=== PATIENT | female | born 1980 | race Caucasian/White ===

== ENCOUNTER → 2017-09-14 15:13 | Outpatient (CLI) | payer OTHER, SELFPAY ==
[2017-09-17 06:49] LABS: Progesterone 4.6 ng/mL (.)
== END ==
PROVIDERS: Visit Provider Obstetrics & Gynecology
DX: Z31.41 Encounter for fertility testing (principal)
CPT/HCPCS: 36415; 82397; 84144

== ENCOUNTER → 2017-10-16 05:06 | Outpatient (CLI) | payer OTHER, SELFPAY ==
--- NOTE | 2017-10-16 | XR_ITS ---
XR foot RT min 3V HISTORY: Right lateral foot pain ORDERING PHYSICIAN: Willie Nicholas MD PATIENT AGE: 36 years COMPARISON: None FINDINGS: No fracture or dislocation. No lytic or blastic change. There is normal mineralization.. The joint spaces are well-preserved. No significant degenerative/arthritic changes. No erosive changes evident. Small spur is present along the proximal and medial aspect of the distal phalanx of the great toe IMPRESSION: No acute finding
== END ==
PROVIDERS: PCP Family Medicine; Visit Provider Emergency Medicine
DX: M79.671 Pain in right foot (principal)
CPT/HCPCS: 73630

== ENCOUNTER → 2018-05-13 21:43 | Outpatient (CLI) | payer OTHER, SELFPAY ==
[2018-05-13 22:51] LABS: Alanine Aminotransferase 36 U/L (12-78); Albumin Level 3.8 gm/dL (3.4-5.0); Alkaline Phosphatase 114 U/L (46-116); Aspartate Amino Transferase 18 U/L (15-37); Bilirubin,Direct 0.1 mg/dL (0.0-0.2); Bilirubin,Indirect 0.1 mg/dL (0.0-0.9); Bilirubin,Total 0.2 mg/dL (0.2-1.0); Total Protein,Serum 7.7 gm/dL (6.4-8.2)
== END ==
PROVIDERS: Visit Provider Physician Assistant
DX: R94.5 Abnormal results of liver function studies (principal)
CPT/HCPCS: 36415; 80076

== ENCOUNTER → 2018-10-16 13:39 | Outpatient (CLI) | payer OTHER, SELFPAY ==
[2018-10-16 13:58] VITALS: BMI 37.3
== END ==
PROVIDERS: PCP Family Medicine; Visit Provider Nurse Practitioner
DX: J02.0 Streptococcal pharyngitis (principal)
CPT/HCPCS: J0561

== ENCOUNTER → 2018-12-18 20:10 | Outpatient (CLI) | payer OTHER, SELFPAY | PROVIDERS: PCP Family Medicine; Visit Provider Nurse Practitioner Family | DX: J02.9 Acute pharyngitis, unspecified (principal) ==

== ENCOUNTER 2018-12-20 21:25 | Outpatient (CLI) | payer OTHER, SELFPAY ==
[2018-12-20 21:43] VITALS: BMI 37.9
== END 2018-12-20 21:46 | disposition home or self-care (01) ==
PROVIDERS: PCP Family Medicine; Visit Provider Nurse Practitioner
DX: R21 Rash and other nonspecific skin eruption (principal)

== ENCOUNTER → 2019-03-01 11:14 | Outpatient (CLI) | payer OTHER, SELFPAY ==
[2019-03-01 11:19] VITALS: BMI 39.1
== END ==
PROVIDERS: PCP Psychiatry & Neurology Sleep Medicine; Visit Provider Nurse Practitioner
DX: J02.0 Streptococcal pharyngitis (principal)
CPT/HCPCS: J0561

== ENCOUNTER → 2019-11-22 18:55 | Outpatient (CLI) | payer OTHER, SELFPAY | PROVIDERS: PCP Physician Assistant; Visit Provider Nurse Practitioner | DX: J32.9 Chronic sinusitis, unspecified (principal) ==

== ENCOUNTER 2020-03-30 18:23 | Emergency (ER) | payer OTHER, SELFPAY ==
[2020-03-30 18:31] VITALS: BMI 39.5
[2020-03-30 18:43] VITALS: RESP 18; O2SAT 98; BMI 39.5
[2020-03-30 18:50] LABS: Basophils # 0.1 K/mm3 (0-0.2); Basophils % 0.8 % (0.1-2.0); Eosinophils # 0.2 K/mm3 (0.0-0.4); Eosinophils % 1.8 % (0.1-12.0); Hematocrit 35.8 % (37.0-47.0); Hemoglobin 11.2 g/dL (12.2-16.2); Lymphocytes # 2.7 K/mm3 (0.7-4.5); Lymphocytes % 34.2 % (10-50); Mean Corpuscular HGB Conc 31.3 g/dL (31.8-35.4); Mean Corpuscular Hemoglobin 26.1 pg (27.0-31.2); Mean Corpuscular Volume 83.4 fl (81-99); Mean Platelet Volume 7.4 fl (7.4-10.4); Monocytes # 0.4 K/mm3 (0.1-1.0); Monocytes % 4.6 % (1.7-9.3); Neutrophils # 4.6 K/mm3 (1.8-7.8); Neutrophils % 58.5 % (37.0-80.0); Platelet Count 381 K/mm3 (142-424); Red Blood Count 4.29 M/mm3 (4.20-5.40); White Blood Count 7.9 K/mm3 (4.8-10.8)
[2020-03-30 18:57] LABS: Alanine Aminotransferase 25 U/L (12-78); Albumin Level 4.7 g/dl (3.5-5.0); Alkaline Phosphatase 120 U/L (38-126); Aspartate Amino Transferase 25 U/L (14-36); Bilirubin,Direct 0.2 mg/dl (0.0-0.4); Bilirubin,Indirect 0.2 mg/dL (0.0-0.9); Bilirubin,Total 0.4 mg/dl (0.2-1.3); Bilirubin,Unconjugated 0.2 mg/dL (0.0-1.1); Total Protein,Serum 8.5 g/dl (6.3-8.2)
[2020-03-30 19:00] VITALS: BP 00/00; PULSE 83; RESP 18; TEMP 36.6; O2SAT 98
--- NOTE | 2020-03-30 19:06 | HMH.EDUTC ---
[facility] Disposition Clinical Impression: Needle stick injury of finger Disposition: Home, Self-Care Condition on Discharge: Good Referrals: Noni Gomes PA [Primary Care Provider] - Time of Disposition: 19:07 Medical Decision Making - Jewel Inquiry Pt receiving controlled substance: No Vital Signs: 03/30/20 18:43 Respiratory Rate 18 02 Sat by Pulse Oximetry 98 Oxygen Delivery Method Room Air - Lab Data Lab results reviewed: Yes: I reviewed the patient's lab results. Lab Results 03/30/20 18:35: WBC 7.9, RBC 4.29, Hgb 11.2 L, Hct 35.8 L, MCV 83.4, MCH 26.1 L, MCHC 31.3 L, RDW 15.0, Plt Count 381, MPV 7.4, Neut % (Auto) 58.5, Lymph % (Auto) 34.2, Pope % (Auto) 4.6, Eos % (Auto) 1.8, Baso % (Auto) 0.8, Neut # (Auto) 4.6, Lymph # (Auto) 2.7, Pope # (Auto) 0.4, Eos # (Auto) 0.2, Baso # (Auto) 0.1 03/30/20 18:35: Total Bilirubin 0.4, Direct Bilirubin 0.2, Conjugated Bilirubin 0.0, Indirect Bilirubin 0.2, Unconjugated Bilirubin 0.2, AST 25, ALT 25, Alkaline Phosphatase 120, Total Protein 8.5 H, Albumin 4.7 Result diagrams: 03/30/20 18:35 Orders (Tests/Meds): ORDERS Category Date Time Status HIV Panel [id number] Stat Lab 03/30/20 18:35 Received Hep B Core Ab, Tot Stat Lab 03/30/20 18:35 Received Hep B Surface Ab, Qual Stat Lab 03/30/20 18:35 Received PT/PTT Stat Lab 03/30/20 18:35 Received [facility] HPI - General Stated complaint: WC [id number] stuck with needle Time Seen by Provider: 03/30/20 19:06 Mode of Arrival: Ambulatory Source of Information: Patient Limitations: No Limitations Description of Symptoms (Recalled from Triage Doc. by RN): STUCK TO LEFT INDEX FINGER WITH CONTAMINATED NEEDLE HEENT Symptoms (Recalled from RN notes): No Resp Symptoms (Recalled from RN notes): No Skin Symptoms (Recalled from RN notes): No MS Symptoms (Recalled from RN notes): No Functional Status (Recalled from RN notes): WNL - History of Present Illness Provider Complaint: Needle stick to left index finger. Onset (ago): minute(s) (10) Location: left, upper extremity Relieving factors: none Exacerbating factors: none Treatments prior to arrival: none - Related Data Home Medications Medication Instructions Recorded Confirmed Ascorbic Acid [Vitamin C 500mg 500 mg PO DAILY 12/18/18 12/18/18 tablet] Cholecalciferol (Vitamin D3) 2,000 units PO DAILY 12/18/18 12/18/18 [Vitamin D3 1,000 Unit Cap] Cyanocobalamin/Cobamamide [B-12 1 each SL DAILY 12/18/18 12/18/18 5,000 Mcg Sublingual Tab] L.acidoph,Paracasei, B.lactis 1 each PO DAILY 12/18/18 12/18/18 [Probiotic] Previous Rx's Medication Instructions Recorded azithromycin 250 mg tablet See Rx Instructions PO .COMPLEX #6 11/25/19 tab methylprednisolone 4 mg tablets in 4 mg PO PER PKG DIR 6 Days #21 tab 11/25/19 a dose pack clindamycin HCl 300 mg capsule 300 mg PO BID 7 Days #14 cap 03/10/20 fluconazole 100 mg tablet 100 mg PO ONCE #1 tab 03/10/20 levofloxacin 500 mg tablet 500 mg PO Q24H 5 Days #5 tab 03/10/20 Allergies Allergy/AdvReac Type Severity Reaction Status Date / Time No Known Allergies Allergy Verified 01/10/18 19:05 - Worker's Comp Is this a Worker's Comp case?: No [facility] History - Hepatitis A Screen Drug use history?: No High risk sexual behaviors?: No History of sexually transmitted infection?: No Currently employed?: No Childcare worker?: No Do you have indoor plumbing?: Yes Do you have electricity?: Yes Attestation statement:: This patient has been screened for Hepatitis A risk factors. I have reviewed the patient's past medical history: Yes - Social History Alcohol Intake: never ROS Obtained: Yes All systems reviewed & no additional complaints Physical Exam - General General appearance: alert, in no apparent distress - Eye Eye exam: Present: PERRL - Respiratory Respiratory exam: Present: normal lung sounds bilaterally - Cardiovascular Cardiovascular exam: Present: regular rate,
[2020-03-30 19:15] LABS: Activated Partial Thrombo Time 23.9 seconds (23.6-34.0); INR 1.02 (0.9-1.1); Prothrombin Time 10.5 seconds (9.4-11.8)
[2020-04-02 10:33] LABS: HIV Screen 4th Generation wRfx Non Reactive (Non Reactive)
[2020-04-02 11:49] LABS: Hep B Core Ab, Total Negative (Negative); Hep B Surface Ab, Qual Non Reactive (.)
== END 2020-03-30 19:07 | disposition home or self-care (01) ==
PROVIDERS: Emergency Provider Physician Assistant; PCP Physician Assistant
DX: S61.231A Puncture wound without foreign body of left index finger without damage to nail, initial encounter (principal); W26.8XXA Contact with other sharp object(s), not elsewhere classified, initial encounter; Y92.69 Other specified industrial and construction area as the place of occurrence of the external cause; Y99.0 Civilian activity done for income or pay
CPT/HCPCS: 80076; 85025; 85610; 85730; 86703; 86704; 86706; 99202; G0432; G0463

== ENCOUNTER → 2020-05-16 15:52 | Outpatient (CLI) | payer OTHER, SELFPAY ==
[2020-05-16 18:14] LABS: Coronavirus 19 IgG Antibody Negative (Negative); Coronavirus 19 IgM Antibody Negative (Negative)
== END ==
PROVIDERS: PCP Physician Assistant; Visit Provider Nurse Practitioner
DX: Z20.822 Contact with and (suspected) exposure to COVID-19 (principal)
CPT/HCPCS: 86328

== ENCOUNTER → 2020-06-19 19:52 | Outpatient (CLI) | payer OTHER, SELFPAY ==
[2020-06-19 19:59] VITALS: BMI 39.5
== END ==
PROVIDERS: PCP Family Medicine; Visit Provider Nurse Practitioner Family
DX: R10.13 Epigastric pain (principal)

== ENCOUNTER → 2020-07-02 09:11 | Outpatient (CLI) | payer OTHER, SELFPAY ==
[2020-07-02 10:29] LABS: Basophils # 0.1 K/mm3 (0-0.2); Eosinophils # 0.2 K/mm3 (0.0-0.4); Eosinophils % 2.1 % (0.1-12.0); Hematocrit 34.8 % (37.0-47.0); Hemoglobin 11.4 g/dL (12.2-16.2); Lymphocytes # 2.1 K/mm3 (0.7-4.5); Lymphocytes % 30.8 % (10-50); Mean Corpuscular HGB Conc 32.7 g/dL (31.8-35.4); Mean Corpuscular Hemoglobin 25.6 pg (27.0-31.2); Mean Corpuscular Volume 78.2 fl (81-99); Mean Platelet Volume 7.4 fl (7.4-10.4); Monocytes # 0.3 K/mm3 (0.1-1.0); Monocytes % 4.4 % (1.7-9.3); Neutrophils # 4.3 K/mm3 (1.8-7.8); Neutrophils % 61.7 % (37.0-80.0); Platelet Count 408 K/mm3 (142-424); Red Blood Count 4.45 M/mm3 (4.20-5.40); Red Cell Distribution Width 15.7 % (11.5-17.5); White Blood Count 6.9 K/mm3 (4.8-10.8)
[2020-07-02 10:48] LABS: Hemoglobin A1C 6.4 % (4.0-6.0)
[2020-07-02 10:55] LABS: Chloride 106 mmol/L (98-107); Potassium 4.2 mmoL/L (3.5-5.1); Sodium 139 mmol/L (136-145)
[2020-07-02 11:09] LABS: Alanine Aminotransferase 25 U/L (12-78); Alkaline Phosphatase 139 U/L (38-126); Anion Gap 13.2 mEq/L (5-15); Aspartate Amino Transferase 29 U/L (14-36); Bilirubin,Total 0.5 mg/dl (0.2-1.3); Blood Urea Nitrogen 16 mg/dl (7-17); Carbon Dioxide 24 mmol/L (22.0-30.0); Direct LDL Cholesterol 132.77 mg/dL (100-129); Estimated Glomerular Filt Rate 112 ml/min (>60); GFR (African American) 136 ML/MIN (>60)
[2020-07-02 11:10] LABS: Albumin Level 4.7 g/dl (3.5-5.0); Albumin/Globulin Ratio 1.4 (1.1-1.8); Calcium 9.3 mg/dl (8.4-10.2); Chol/HDL Ratio 5.3 (1-3.5); Cholesterol 207 mg/dl (140-200); Globulin 3.3 g/dL (1.3-3.2); Glucose 141 mg/dl (74-100); HDL Cholesterol 39 mg/dl (40-60); Triglycerides 135 mg/dl (30-150); VLDL Cholesterol 27 mg/dL (0-40)
[2020-07-02 11:15] LABS: T4 (Thyroxine) 11.3 ug/dl (5.53-11.0)
[2020-07-02 11:29] LABS: Thyroid Stimulating Hormone 3.57 uIU/mL (0.465-4.68)
== END ==
PROVIDERS: PCP Physician Assistant; Visit Provider Nurse Practitioner Family
DX: E03.9 Hypothyroidism, unspecified (principal); E28.2 Polycystic ovarian syndrome; R73.03 Prediabetes; E66.9 Obesity, unspecified
CPT/HCPCS: 80053; 80061; 83036; 84436; 84443; 85025

== ENCOUNTER → 2020-07-03 17:35 | Outpatient (CLI) | payer OTHER, SELFPAY ==
--- NOTE | 2020-07-03 18:54 | XR_ITS ---
PROCEDURE: XR CHEST 2V CLINICAL HISTORY: elevated alk phos level COMPARISON: CT ABDPELW/O CT ABD PELVIS W/O CONTRAST from 03/31/2016 FINDINGS: The cardiomediastinal silhouette and pulmonary vascularity are within normal limits. The lungs are clear without infiltrates, suspicious nodules, or pleural effusions. There is mild kyphosis of the lower thoracic spine. There is slight loss of height anteriorly of T12 which is unchanged from the prior CT scan of 03/31/2016. IMPRESSION: No acute findings. Dictated by: Kevin Salvador MD 07/04/2020 07:37 Kevin Salvador MD in [place] 07/04/2020 07:37
== END ==
PROVIDERS: PCP Nurse Practitioner Family; Visit Provider Nurse Practitioner Family
DX: R74.8 Abnormal levels of other serum enzymes (principal)
CPT/HCPCS: 71046

== ENCOUNTER → 2020-08-28 17:55 | Outpatient (CLI) | payer OTHER, SELFPAY ==
[2020-08-28 18:07] LABS: Adenovirus,PCR Not Detected (NotDetected); Bordetella Pertussis Not Detected (NotDetected); Chlamydophila Pneumoniae, PCR Not Detected (NotDetected); Coronavirus 229E Not Detected (NotDetected); Coronavirus NL63 Not Detected (NotDetected); Coronavirus OC43 Not Detected (NotDetected); Coronovirus HKU1,PCR Not Detected (NotDetected); Human Metapneumovirus Not Detected (NotDetected); Influenza A, PCR Not Detected (NotDetected); Influenza AH1, 2009 Not Detected (NotDetected); Influenza AH1, PCR Not Detected (NotDetected); Influenza AH3,PCR Not Detected (NotDetected); Influenza B, PCR Not Detected (NotDetected); Mycoplasma Pneumoniae, PCR Not Detected (NotDetected); Parainfluenza 1, PCR Not Detected (NotDetected); Parainfluenza 2, PCR Not Detected (NotDetected); Parainfluenza 3, PCR Not Detected (NotDetected); Parainfluenza 4, PCR Not Detected (NotDetected); Respiratory Syncytial Virus Not Detected (NotDetected); Rhinovirus/Enterovirus Not Detected (NotDetected)
[2020-08-28 21:28] LABS: Coronavirus 19, PCR Detected (NotDetected)
== END ==
PROVIDERS: PCP Nurse Practitioner Family; Visit Provider Nurse Practitioner
DX: Z11.52 Encounter for screening for COVID-19 (principal); U07.1 COVID-19
CPT/HCPCS: 87581; 87633; 87798

== ENCOUNTER 2020-09-05 16:34 | Emergency (ER) | payer OTHER, SELFPAY ==
[2020-09-05 16:35] VITALS: BP 128/91; PULSE 109; RESP 18; TEMP 36.8; O2SAT 96; BMI 38.4
--- NOTE | 2020-09-05 16:37 | XR_ITS ---
PROCEDURE: XR CHEST PORTABLE CLINICAL HISTORY: short of breath Cough, Covid19 COMPARISON: No exams were available for comparison FINDINGS: The cardiomediastinal silhouette and pulmonary vascularity are within normal limits. The lungs are clear without infiltrates, suspicious nodules, or pleural effusions. No acute bony abnormalities. IMPRESSION: No acute findings. Dictated by: Kevin Salvador MD 09/05/2020 17:27 Kevin Salvador MD in [place] 09/05/2020 17:27
--- NOTE | 2020-09-05 16:53 | HMH.EDGENADL ---
ED Disposition Clinical Impression: COVID-19 Dyspnea Qualifiers: Dyspnea type: shortness of breath Qualified Code(s): R06.02 - Shortness of breath Disposition: Home, Self-Care Condition on Discharge: Fair Instructions: DI for COVID-19 (Suspected or Confirmed ), DI for Shortness of Breath Additional Instructions: You have been evaluated for shortness of breath. D-dimer is not elevated, doubt pulmonary embolus. Overall presentation is most consistent with COVID-19 infection. There is no sign of pneumonia on your chest x-ray. Please follow-up with your primary care doctor. Monitor your symptoms at home. Take Zofran for nausea. Tessalon for cough. Return to the emergency department at once for any new or worsening symptoms, worsening chest pain, shortness of breath, any other concerns. Prescriptions: ondansetron HCL [Ondansetron 4mg tab*] 4 mg PO TIDP PRN #10 tab PRN Reason: Nausea And Vomiting Transmission Status: P[facility] to [facility] Benzonatate [Tessalon Perle 100mg Cap*] 100 mg PO TID PRN #15 cap PRN Reason: Cough Transmission Status: Pending to [facility] Referrals: Chapin Baker APRN [Primary Care Provider] - Time of Disposition: 18:17 - Critical Care Critical Care Time: No Attestation: On 09/05/20, the high probability of a clinically significant, sudden or life threatening deterioration of the following system(s) required my full and direct attention, intervention and personal management. The time I documented below is in addition to time spent performing reported procedures but includes the following listed in this critical care notation. Medical Decision Making - Medical Records Medical records reviewed: Yes: I reviewed the patient's medical records. - Jewel Inquiry Pt receiving controlled substance: No Vital Signs: 09/05/20 16:35 Temperature 98.3 F Temperature Source Oral Pulse Rate [Right Radial] 109 H Respiratory Rate 18 Blood Pressure [Right Arm] 128/91 H Blood Pressure Mean [Right Arm] 103 Blood Pressure Source [Right Arm] Automatic Cuff Blood Pressure Position [Right Arm] Sitting 02 Sat by Pulse Oximetry 96 Oxygen Delivery Method Room Air - Lab Data Lab Results 09/05/20 16:50: WBC 4.3 L, RBC 5.42 H, Hgb 13.3, Hct 41.6, MCV 76.9 L, MCH 24.6 L, MCHC 32.0, RDW 15.3, Plt Count 417, MPV 7.7, Neut % (Auto) 52.7, Lymph % (Auto) 41.0, [place] % (Auto) 3.4, Eos % (Auto) 2.0, Baso % (Auto) 0.9, Neut # (Auto) 2.3, Lymph # (Auto) 1.8, [place] # (Auto) 0.2, Eos # (Auto) 0.1, Baso # (Auto) 0.0 09/05/20 16:50: Sodium 143, Potassium 4.0, Chloride 105, Carbon Dioxide 24, Anion Gap 18.0 H, BUN 9, Creatinine 0.80, Estimated GFR 81, Est GFR ( Amer) 98, Glucose 121 H, Calcium 9.6, Total Bilirubin 0.4, AST 63 H, ALT 81 H, Alkaline Phosphatase 155 H, Troponin I < 0.01, Total Protein 9.3 H, Albumin 5.2 H, Globulin 4.1 H, Albumin/Globulin Ratio 1.3 09/05/20 16:50: D-Dimer 0.46 Result diagrams: 09/05/20 16:50 09/05/20 16:50 Orders (Tests/Meds): ORDERS Category Date Time Status Troponin I Q3H Lab 09/05/20 19:45 Ordered Troponin I Q3H Lab 09/05/20 22:45 Ordered ECG Request by /Екатерина Stat Y 09/05/20 16:37 Ordered Medical Decision Narrative: In summary this is a 39-year-old female presenting to the emergency department with shortness of breath, COVID-19. Clinically stable on arrival. Initial laboratory results reassuring. Oxygen saturation 96% on room air. Concern for COVID-19, multifocal pneumonia, anemia, pulmonary embolism. Will obtain CBC, CMP, chest x-ray, EKG, troponin profile, D-dimer. Initial laboratory results are reassuring. There is evidence of viral suppression, leukopenia. Slight elevation in AST and ALT. Initial troponin is undetectable. Chest x-ray shows no focal opacity. No tight focal pneumonia. D-dimer is within normal limits. Doubt pulmonary embolism as the most likely cause of her dyspnea. Her presentation is consistent with persistent
[2020-09-05 17:07] LABS: Basophils % 0.9 % (0.1-2.0); Eosinophils # 0.1 K/mm3 (0.0-0.4); Hematocrit 41.6 % (37.0-47.0); Hemoglobin 13.3 g/dL (12.2-16.2); Lymphocytes # 1.8 K/mm3 (0.7-4.5); Mean Corpuscular Hemoglobin 24.6 pg (27.0-31.2); Mean Corpuscular Volume 76.9 fl (81-99); Mean Platelet Volume 7.7 fl (7.4-10.4); Monocytes # 0.2 K/mm3 (0.1-1.0); Monocytes % 3.4 % (1.7-9.3); Neutrophils # 2.3 K/mm3 (1.8-7.8); Neutrophils % 52.7 % (37.0-80.0); Platelet Count 417 K/mm3 (142-424); Red Blood Count 5.42 M/mm3 (4.20-5.40); Red Cell Distribution Width 15.3 % (11.5-17.5); White Blood Count 4.3 K/mm3 (4.8-10.8)
[2020-09-05 17:09] LABS: Chloride 105 mmol/L (98-107)
[2020-09-05 17:10] LABS: Sodium 143 mmol/L (136-145)
[2020-09-05 17:12] LABS: Alanine Aminotransferase 81 U/L (12-78); Aspartate Amino Transferase 63 U/L (14-36); Blood Urea Nitrogen 9 mg/dl (7-17); Carbon Dioxide 24 mmol/L (22.0-30.0); Estimated Glomerular Filt Rate 81 ml/min (>60); GFR (African American) 98 ML/MIN (>60)
[2020-09-05 17:13] LABS: Albumin Level 5.2 g/dl (3.5-5.0); Albumin/Globulin Ratio 1.3 (1.1-1.8); Alkaline Phosphatase 155 U/L (38-126); Bilirubin,Total 0.4 mg/dl (0.2-1.3); Calcium 9.6 mg/dl (8.4-10.2); Globulin 4.1 g/dL (1.3-3.2); Glucose 121 mg/dl (74-100); Total Protein,Serum 9.3 g/dl (6.3-8.2)
[2020-09-05 17:18] LABS: D-Dimer 0.46 ug/mL (0.0-0.5)
[2020-09-05 17:27] LABS: Troponin I < 0.01 ng/ml (0.00-0.034)
[2020-09-05 18:45] VITALS: BP 134/87; PULSE 78; RESP 18; TEMP 36.7; O2SAT 97
== END 2020-09-05 18:48 | disposition home or self-care (01) ==
PROVIDERS: Emergency Provider Emergency Medicine; PCP Nurse Practitioner Family
DX: U07.1 COVID-19 (principal); R06.02 Shortness of breath; J45.909 Unspecified asthma, uncomplicated; E11.9 Type 2 diabetes mellitus without complications; E03.9 Hypothyroidism, unspecified; Z79.899 Other long term (current) drug therapy
CPT/HCPCS: 71045; 80053; 84484; 85025; 85378; 99282

== ENCOUNTER → 2020-10-13 12:25 | Outpatient (CLI) | payer OTHER, SELFPAY ==
[2020-10-13 12:46] LABS: Adenovirus F 40/41, stool Not Detected (NotDetected); Astrovirus Not Detected (NotDetected); Campylobacter Not Detected (NotDetected); Clostridium Difficile A/B, PCR Not Detected (NotDetected); Cryptosporidium Not Detected (NotDetected); Cyclospora Cayetanesis Not Detected (NotDetected); Entamoeba histolytica Not Detected (NotDetected); Enteroaggregative E coli Not Detected (NotDetected); Enteropathogenic E coli Not Detected (NotDetected); Enterotoxigenic E coli Not Detected (NotDetected); Giardia lamblia Not Detected (NotDetected); Norovirus Not Detected (NotDetected); Plesimonas Shigalloides, PCR Not Detected (NotDetected); Rotavirus A Not Detected (NotDetected); Salmonella, PCR Not Detected (NotDetected); Sapovirus Not Detected (NotDetected); Shiga-like toxin E coli Not Detected (NotDetected); Shigella Enterovasive E coli Not Detected (NotDetected); Vibrio Cholerae Not Detected (NotDetected); Vibrio, PCR Not Detected (NotDetected); Yersinia Entercolitica, PCR Not Detected (NotDetected)
== END ==
PROVIDERS: PCP Nurse Practitioner Family; Visit Provider Nurse Practitioner
DX: R19.7 Diarrhea, unspecified (principal)
CPT/HCPCS: 87507

== ENCOUNTER → 2020-10-18 15:40 | Outpatient (CLI) | payer OTHER, SELFPAY | PROVIDERS: PCP Nurse Practitioner Family; Visit Provider Nurse Practitioner Family | DX: R14.0 Abdominal distension (gaseous) (principal) ==

== ENCOUNTER → 2020-11-08 20:03 | Outpatient (CLI) | payer OTHER, SELFPAY ==
[2020-11-10 18:36] LABS: H. pylori Breath Test Positive (Negative)
== END ==
PROVIDERS: PCP Nurse Practitioner Family; Visit Provider Nurse Practitioner Family
DX: R14.3 Flatulence (principal); R14.0 Abdominal distension (gaseous); R14.2 Eructation
CPT/HCPCS: 83013

== ENCOUNTER → 2021-04-27 09:43 | Outpatient (CLI) | payer OTHER, SELFPAY ==
[2021-04-27 17:29] LABS: Thyroid Stimulating Hormone 4.24 uIU/mL (0.465-4.68)
== END ==
PROVIDERS: Obstetrics & Gynecology Reproductive Endocrinology; PCP Nurse Practitioner Family; Visit Provider Obstetrics & Gynecology Reproductive Endocrinology
DX: Z13.29 Encounter for screening for other suspected endocrine disorder (principal); Z79.899 Other long term (current) drug therapy
CPT/HCPCS: 84443

== ENCOUNTER → 2021-05-11 14:40 | Outpatient (CLI) | payer OTHER, SELFPAY ==
[2021-05-11 14:43] VITALS: BMI 37.4
[2021-05-11 16:32] LABS: Alanine Aminotransferase 25 U/L (12-78); Albumin Level 4.3 g/dl (3.5-5.0); Albumin/Globulin Ratio 1.3 (1.1-1.8); Alkaline Phosphatase 102 U/L (38-126); Anion Gap 11.4 mEq/L (5-15); Aspartate Amino Transferase 28 U/L (14-36); Bilirubin,Total 0.3 mg/dl (0.2-1.3); Blood Urea Nitrogen 15 mg/dl (7-17); Calcium 9.1 mg/dl (8.4-10.2); Carbon Dioxide 27 mmol/L (22.0-30.0); Chloride 105 mmol/L (98-107); Chol/HDL Ratio 4.6 (1-3.5); Cholesterol 169 mg/dl (140-200); Creatinine Clearance Estimated 158 mL/min (50-200); Estimated Glomerular Filt Rate 80 ml/min (>60); GFR (African American) 97 ML/MIN (>60); Globulin 3.2 g/dL (1.3-3.2); Glucose 104 mg/dl (74-100); HDL Cholesterol 37 mg/dl (40-60); Potassium 4.4 mmoL/L (3.5-5.1); Sodium 139 mmol/L (136-145); Total Protein,Serum 7.5 g/dl (6.3-8.2); Triglycerides 97 mg/dl (30-150); VLDL Cholesterol 19 mg/dL (0-40)
[2021-05-11 16:39] LABS: Basophils # 0.1 K/mm3 (0-0.2); Basophils % 1.3 % (0.1-2.0); Eosinophils # 0.1 K/mm3 (0.0-0.4); Eosinophils % 1.5 % (0.1-12.0); Hematocrit 37.3 % (37.0-47.0); Hemoglobin 11.7 g/dL (12.2-16.2); Lymphocytes # 2.1 K/mm3 (0.7-4.5); Mean Corpuscular HGB Conc 31.2 g/dL (31.8-35.4); Mean Corpuscular Hemoglobin 25.2 pg (27.0-31.2); Mean Corpuscular Volume 80.8 fl (81-99); Mean Platelet Volume 8.2 fl (7.4-10.4); Monocytes # 0.3 K/mm3 (0.1-1.0); Monocytes % 4.7 % (1.7-9.3); Neutrophils # 3.9 K/mm3 (1.8-7.8); Neutrophils % 59.5 % (37.0-80.0); Platelet Count 431 K/mm3 (142-424); Red Blood Count 4.62 M/mm3 (4.20-5.40); Red Cell Distribution Width 16.5 % (11.5-17.5); White Blood Count 6.5 K/mm3 (4.8-10.8)
[2021-05-11 16:43] LABS: Direct LDL Cholesterol 95.15 mg/dL (100-129)
[2021-05-11 16:49] LABS: T4 (Thyroxine) 9.5 ug/dl (5.53-11.0)
[2021-05-11 16:50] LABS: 25-OH Vitamin D, Total 46.2 ng/mL (30-100)
[2021-05-11 17:03] LABS: Thyroid Stimulating Hormone 2.96 uIU/mL (0.465-4.68)
[2021-05-11 17:04] LABS: Hemoglobin A1C 5.9 % (4.0-6.0)
== END ==
PROVIDERS: PCP Nurse Practitioner Family; Visit Provider Nurse Practitioner Family
DX: R73.03 Prediabetes (principal); E66.3 Overweight; Z68.37 Body mass index [BMI] 37.0-37.9, adult; Z79.899 Other long term (current) drug therapy
CPT/HCPCS: 80053; 80061; 82306; 83036; 84436; 84443; 85025

== ENCOUNTER → 2021-06-17 19:28 | Outpatient (CLI) | payer OTHER, SELFPAY ==
[2021-06-17 20:08] LABS: Strep Scrn Group A (Rapid) Negative (Negative)
== END ==
PROVIDERS: PCP Nurse Practitioner Family; Visit Provider Nurse Practitioner
DX: J02.9 Acute pharyngitis, unspecified (principal)
CPT/HCPCS: 87430

== ENCOUNTER → 2021-11-09 16:40 | Outpatient (CLI) | payer OTHER, SELFPAY ==
--- NOTE | 2021-11-09 17:08 | XR_ITS ---
PROCEDURE INFORMATION: Exam: XR Left Knee Exam date and time: 11/09/2021 4:56 PM Age: 40 years old Clinical indication: Knee; Left; Patient HX: PT fell x 10 days ago, pain @ medial and lateral condyles of tibia TECHNIQUE: Imaging protocol: Radiologic exam of the Left knee. Views: 1 or 2 views. COMPARISON: No relevant prior studies available. FINDINGS: Bones/joints: There is no evidence of acute fracture. There is no evidence of joint malalignment or dislocation. Soft tissues: No focal soft tissue swelling. IMPRESSION: 1. No evidence of acute fracture. 2. No evidence of acute dislocation.
--- NOTE | 2021-11-09 18:07 | XR_ITS ---
PROCEDURE INFORMATION: Exam: XR Right Knee Exam date and time: 11/09/2021 6:09 PM Age: 40 years old Clinical indication: Screening exam; Comparison TECHNIQUE: Imaging protocol: Radiologic exam of the Right knee. Views: 1 or 2 views. COMPARISON: CR [id number] XR foot RT min 3V 10/16/2017 5:19 AM FINDINGS: Bones/joints: There is no evidence of acute fracture. There is no evidence of joint malalignment or dislocation. Soft tissues: No focal soft tissue swelling. IMPRESSION: 1. No evidence of acute fracture. 2. No evidence of acute dislocation.
== END ==
PROVIDERS: PCP Nurse Practitioner Family; Visit Provider Nurse Practitioner Family
DX: M25.562 Pain in left knee (principal); W19.XXXA Unspecified fall, initial encounter
CPT/HCPCS: 73560

== ENCOUNTER → 2021-11-20 14:43 | Outpatient (CLI) | payer OTHER, SELFPAY ==
[2021-11-20 14:53] VITALS: BMI 39.5
== END ==
PROVIDERS: PCP Nurse Practitioner Family; Visit Provider Nurse Practitioner Family
DX: J32.8 Other chronic sinusitis (principal); R09.81 Nasal congestion
CPT/HCPCS: 96372

== ENCOUNTER → 2021-12-08 16:29 | Outpatient (CLI) | payer OTHER, SELFPAY ==
[2021-12-08 19:00] VITALS: BMI 40.7
== END ==
PROVIDERS: PCP Nurse Practitioner Family; Visit Provider Nurse Practitioner Family
DX: M25.562 Pain in left knee (principal); M25.561 Pain in right knee

== ENCOUNTER → 2022-02-28 10:21 | Outpatient (CLI) | payer OTHER, SELFPAY ==
--- NOTE | 2022-02-28 10:30 | XR_ITS ---
FINAL REPORT CLINICAL HISTORY: PAIN IN LEFT FOOT..no truama..shielded FINDINGS: AP, oblique and lateral views of the left foot were obtained. There is no prior exam for comparison. There is no acute fracture or dislocation. The joint spaces are preserved. Soft tissues are normal. IMPRESSION: No acute osseous abnormality of the left foot. Reviewed, Interpreted and Dictated by Silvana Harp MD Transcribed by Jahaira Luque Authenticated and [facility]
== END ==
PROVIDERS: PCP Nurse Practitioner Family; Visit Provider Nurse Practitioner
DX: M79.672 Pain in left foot (principal)
CPT/HCPCS: 73630

== ENCOUNTER → 2022-04-08 19:17 | Outpatient (CLI) | payer OTHER, SELFPAY ==
[2022-04-08 19:36] VITALS: BMI 40.4
== END ==
PROVIDERS: PCP Nurse Practitioner Family; Visit Provider Nurse Practitioner
DX: J40 Bronchitis, not specified as acute or chronic (principal)
CPT/HCPCS: J0696

== ENCOUNTER → 2022-05-19 19:24 | Outpatient (CLI) | payer OTHER, SELFPAY ==
[2022-05-19 19:31] VITALS: BMI 39.9
== END | disposition home or self-care (01) ==
PROVIDERS: PCP Nurse Practitioner Family; Visit Provider Nurse Practitioner
DX: M25.511 Pain in right shoulder (principal); S46.911A Strain of unspecified muscle, fascia and tendon at shoulder and upper arm level, right arm, initial encounter
CPT/HCPCS: 96372

== ENCOUNTER 2022-06-14 19:49 | Outpatient (CLI) | payer OTHER, SELFPAY ==
[2022-06-14 19:56] VITALS: BMI 39.6
== END 2022-06-14 21:00 ==
PROVIDERS: PCP Nurse Practitioner Family; Visit Provider Nurse Practitioner Family
DX: M25.511 Pain in right shoulder (principal)

== ENCOUNTER → 2022-06-30 10:21 | Outpatient (CLI) | payer OTHER, SELFPAY ==
--- NOTE | 2022-06-30 10:34 | XR_ITS ---
FINAL REPORT CLINICAL HISTORY: ankle and heel pain FINDINGS: LEFT ANKLE: Three weight-bearing views of the left ankle were obtained. There is no acute fracture or dislocation. There is a posterior calcaneal spur. The joint spaces and mortise are intact. There is no soft tissue abnormality. IMPRESSION: No acute process. Reviewed, Interpreted and Dictated by Julián Neri III, MD Transcribed by Deepak Oh Authenticated and [facility]
--- NOTE | 2022-06-30 10:34 | XR_ITS ---
FINAL REPORT CLINICAL HISTORY: foot and heel pain FINDINGS: LEFT FOOT: Three weight-bearing views of the left foot were obtained. There is no acute fracture or dislocation. There is a posterior calcaneal spur. The joint spaces and mortise are intact. There is no soft tissue abnormality. IMPRESSION: No acute process. Reviewed, Interpreted and Dictated by Julián Neri III, MD Transcribed by Deepak Oh Authenticated and [facility]
== END ==
PROVIDERS: PCP Nurse Practitioner Family; Visit Provider Podiatrist
DX: M25.572 Pain in left ankle and joints of left foot (principal)
CPT/HCPCS: 73610; 73630

== ENCOUNTER → 2022-09-13 15:14 | Outpatient (CLI) | payer OTHER, SELFPAY ==
[2022-09-13 16:18] LABS: HCG,Quantitative < 2 mIU/ml (0-5.42)
== END ==
PROVIDERS: PCP Nurse Practitioner Family; Visit Provider Nurse Practitioner Family
DX: N91.2 Amenorrhea, unspecified (principal)
CPT/HCPCS: 84702

== ENCOUNTER → 2022-10-10 13:24 | Outpatient (CLI) | payer OTHER, SELFPAY | PROVIDERS: PCP Nurse Practitioner Family; Visit Provider Obstetrics & Gynecology | DX: N91.1 Secondary amenorrhea (principal); Z01.419 Encounter for gynecological examination (general) (routine) without abnormal findings | CPT/HCPCS: 36415; 84443 ==

== ENCOUNTER → 2022-11-09 14:54 | Outpatient (CLI) | payer OTHER, SELFPAY ==
[2022-11-09 15:08] LABS: Microscopic, Urine URINE MICROSCOPIC (MICROSCOPIC)
[2022-11-09 15:11] LABS: Appearance,Urine CLEAR (Clear); Bilirubin,Urine Negative (Negative); Blood, Urine Negative (Negative); Color,Urine YELLOW (Yellow); Glucose,Urine (UA) Negative (Negative); Ketones,Urine Negative (Negative); Leukocyte Esterase,Urine Negative (Negative); Nitrate,Urine Negative (Negative); Protein,Urine Negative (Negative); Specific Gravity, Urine >= 1.030 (1.005-1.030); Urobilinogen,Urine 0.2 EU/dl (0.2)
[2022-11-09 15:32] LABS: Bacteria,Urine Trace /lpf; Mucus,Urine 2+ /lpf; Yeast,Urine Occasional /lpf
[2022-11-09 15:59] VITALS: BMI 37.7
== END ==
PROVIDERS: PCP Nurse Practitioner Family; Visit Provider Nurse Practitioner
DX: N39.0 Urinary tract infection, site not specified (principal)
CPT/HCPCS: 81001

== ENCOUNTER → 2023-01-30 07:38 | Outpatient (CLI) | payer OTHER, SELFPAY ==
--- NOTE | 2023-01-30 07:38 | FL_ITS ---
FINAL REPORT CLINICAL HISTORY: pcos/desire for , ft 0.21, dap 249.94 FINDINGS: FLUOROSCOPY LESS THAN 1 HOUR HISTORY: Fluoroscopy guidance. Fluoroscopic guidance was provided for hysterosalpingography. A single spot film was obtained. A total of 0.21 minutes of fluoroscopy time were used. Total DAP: 249.94 mGy IMPRESSION: As above. Reviewed, Interpreted and Dictated by Pascual Montoya MD Transcribed by Becki Fernández Authenticated and [facility]
[2023-01-30 08:49] LABS: HCG Qualitative, Serum Negative (Negative)
== END ==
LOC: RAD 07:38
PROVIDERS: PCP Nurse Practitioner Family; Visit Provider Obstetrics & Gynecology
DX: E28.2 Polycystic ovarian syndrome (principal); N92.6 Irregular menstruation, unspecified; Z31.9 Encounter for procreative management, unspecified
CPT/HCPCS: 36415; 74740; 84703

== ENCOUNTER 2023-05-14 19:00 | Outpatient (CLI) | payer OTHER, SELFPAY ==
--- NOTE | 2023-05-14 19:01 | MR_ITS ---
PROCEDURE INFORMATION: Exam: MR Left Lower Extremity Joint Without Contrast; Ankle Exam date and time: 05/14/2023 7:00 PM Age: 42 years old Clinical indication: Pain; Ankle; Left; Additional info: Evaluation for left achilles pain TECHNIQUE: Imaging protocol: Magnetic resonance imaging of the left lower extremity without contrast. Exam focused on the ankle. COMPARISON: CR XR ANKLE WT BEARING LT MIN 3V 06/30/2022 10:44 AM FINDINGS: Bones/joints: Marrow edema is identified involving the posterior aspect of the calcaneus, which is likely reactive, post-traumatic, or due to stress injury. Infection is considered less likely. A calcaneal spur is identified. Minimal tibiotalar subtalar joint effusions are seen. A calcaneal spur is visualized. No dislocation of the ankle. LIGAMENTS: Distal tibiofibular syndesmosis: No visualized tear. Anterior talofibular ligament: No visualized tear. Posterior talofibular ligament: No visualized tear. Calcaneofibular ligament: Edema is seen adjacent to the calcaneofibular ligament, consistent with ligament sprain or extension of adjacent soft tissue swelling. Deltoid ligament complex: No visualized tear. TENDONS: Flexor tendons of foot: Unremarkable as visualized. Tibialis posterior tendon: Minimal tenosynovitis is identified of the posterior tibialis tendon. Peroneal tendons: Unremarkable as visualized. Extensor tendons of foot: Unremarkable as visualized. Tibialis anterior tendon: Unremarkable as visualized. Achilles tendon: Thickening and heterogeneous signal intensity of the Achilles tendon is identified, consistent with tendinosis. Partial tear is also visualized distally. Edema is seen within K[place] fat pad, suggestive of paratenonitis. Tarsal canal (Sinus tarsi): A small cystic collection of fluid is seen within the sinus tarsi. Soft tissues: Soft tissue swelling of the ankle is visualized. There is mild soft tissue swelling of the foot. Edema is seen within the brachial is fat pad, suggestive of peratenonitis. Plantar fascia: Intact, as visualized. IMPRESSION: 1. Tendinosis and partial tear of the Achilles tendon. 2. Edema is seen within [place] fat pad, suggestive of paratenonitis. 3. Soft tissue swelling of the ankle is visualized. There is mild soft tissue swelling of the foot. 4. Marrow edema is identified involving the posterior aspect of the calcaneus, which is likely reactive, post-traumatic, or due to stress injury. Infection is considered less likely. Clinical correlation recommended. 5. Edema is seen adjacent to the calcaneofibular ligament, consistent with ligament sprain or extension of adjacent soft tissue swelling. 6. Additional findings described above.
== END 2023-05-14 23:59 ==
LOC: RAD 19:01
PROVIDERS: PCP Nurse Practitioner Family; Visit Provider Podiatrist
DX: M25.572 Pain in left ankle and joints of left foot (principal); M76.62 Achilles tendinitis, left leg; M21.6X1 Other acquired deformities of right foot; M21.6X2 Other acquired deformities of left foot; M92.62 Juvenile osteochondrosis of tarsus, left ankle
CPT/HCPCS: 73721

== ENCOUNTER 2023-05-22 08:13 | Outpatient (CLI) | payer OTHER, SELFPAY ==
[2023-05-22 09:48] LABS: Chloride 109 mmol/L (98-107); Sodium 140 mmol/L (136-145)
[2023-05-22 09:50] LABS: Amylase 53 U/L (30-110); Blood Urea Nitrogen 11 mg/dl (7-17); Estimated Glomerular Filt Rate 111 ml/min (>60); GFR (African American) 134 ML/MIN (>60)
[2023-05-22 09:51] LABS: Alanine Aminotransferase 30 U/L (12-78); Albumin/Globulin Ratio 1.4 (1.1-1.8); Alkaline Phosphatase 96 U/L (38-126); Aspartate Amino Transferase 26 U/L (14-36); Bilirubin,Total 0.5 mg/dl (0.2-1.3); Calcium 9.1 mg/dl (8.4-10.2); Carbon Dioxide 24 mmol/L (22.0-30.0); Globulin 2.9 g/dL (1.3-3.2); Glucose 176 mg/dl (74-100); Lipase 41 U/L (23-300); Total Protein,Serum 6.9 g/dl (6.3-8.2)
[2023-05-22 09:53] LABS: Basophils # 0.1 K/mm3 (0-0.2); Basophils % 1.2 % (0.1-2.0); Eosinophils # 0.1 K/mm3 (0.0-0.4); Eosinophils % 1.6 % (0.1-12.0); Hematocrit 38.6 % (37.0-47.0); Hemoglobin 12.4 g/dL (12.2-16.2); Lymphocytes # 1.7 K/mm3 (0.7-4.5); Lymphocytes % 24.2 % (10-50); Mean Corpuscular HGB Conc 32.1 g/dL (31.8-35.4); Mean Corpuscular Hemoglobin 28.5 pg (27.0-31.2); Mean Corpuscular Volume 88.8 fl (81-99); Mean Platelet Volume 7.8 fl (7.4-10.4); Monocytes # 0.3 K/mm3 (0.1-1.0); Monocytes % 4.3 % (1.7-9.3); Neutrophils # 4.9 K/mm3 (1.8-7.8); Neutrophils % 68.8 % (37.0-80.0); Platelet Count 399 K/mm3 (142-424); Red Blood Count 4.35 M/mm3 (4.20-5.40); Red Cell Distribution Width 15.4 % (11.5-17.5); White Blood Count 7.1 K/mm3 (4.8-10.8)
[2023-05-22 10:40] LABS: Hemoglobin A1C 6.2 % (4.0-6.0)
== END 2023-05-22 23:59 | disposition home or self-care (01) ==
LOC: LAB 08:14
PROVIDERS: PCP Nurse Practitioner Family; Visit Provider Nurse Practitioner Family
DX: Z79.899 Other long term (current) drug therapy (principal); Z68.36 Body mass index [BMI] 36.0-36.9, adult; E66.9 Obesity, unspecified; E11.9 Type 2 diabetes mellitus without complications
CPT/HCPCS: 80053; 82150; 83036; 83690; 85025

== ENCOUNTER 2023-06-01 16:38 | Outpatient (CLI) | payer OTHER, SELFPAY ==
--- NOTE | 2023-06-01 | CT_ITS ---
PROCEDURE INFORMATION: Exam: CT Abdomen Without Contrast Exam date and time: 06/01/2023 4:48 PM Age: 42 years old Clinical indication: Abdominal pain; Tenderness; Right upper quadrant (ruq); Additional info: Ruq pain TECHNIQUE: Imaging protocol: Computed tomography of the abdomen without contrast. Radiation optimization: All CT scans at this facility use at least one of these dose optimization techniques: automated exposure control; mA and/or kV adjustment per patient size (includes targeted exams where dose is matched to clinical indication); or iterative reconstruction. COMPARISON: [facility]/O MRI-L-SPINE W/O 11/20/2016 3:22 PM FINDINGS: Liver: Severe diffuse hepatic steatosis is identified. Gallbladder and bile ducts: There has been a cholecystectomy. Pancreas: The pancreas is normal. Spleen: The spleen is normal. Adrenal glands: Left adrenal adenoma measures 1 cm. Otherwise adrenal glands unremarkable. Kidneys and ureters: Normal. No hydronephrosis. Stomach and bowel: Slightly prominent stool within the cecum. Intraperitoneal space: Unremarkable. No free air. No significant fluid collection. Vasculature: Unremarkable. No abdominal aortic aneurysm. Lymph nodes: Unremarkable. No pathologically enlarged lymph nodes are identified. Urinary bladder: The bladder appears within normal limits. No wall thickening. Reproductive: The uterus and adnexal structures appear normal. Bones/joints: No acute fracture. No dislocation or significant alignment abnormalities Soft tissues: Unremarkable. IMPRESSION: 1. Severe diffuse hepatic steatosis is identified. 2. Slightly prominent stool within the cecum. 3. No acute inflammatory process identified within the abdomen or pelvis. COMMENTS: Consistent with the [employer]'s Incidental Findings Committee white paper (J Am Jonathan Radiol 2017): For any incidental adrenal lesion greater than or equal to 1 cm but less than or equal to 4 cm classified in this report as benign, likely benign, or containing fat (including classification as an adenoma or myelolipoma), no follow-up imaging is recommended per consensus recommendations based on imaging criteria. Further lab evaluation could be pursued if warranted based on clinical findings.
== END 2023-06-01 23:59 | disposition home or self-care (01) ==
LOC: RAD 16:40
PROVIDERS: PCP Nurse Practitioner Family; Visit Provider Nurse Practitioner Family
DX: R10.11 Right upper quadrant pain (principal)
CPT/HCPCS: 74150

== ENCOUNTER 2023-06-12 10:43 | Outpatient (CLI) | payer OTHER, SELFPAY | END 2023-06-12 23:59 | disposition home or self-care (01) | LOC: LAB 10:44 | PROVIDERS: PCP Nurse Practitioner Family; Visit Provider Obstetrics & Gynecology | DX: Z31.9 Encounter for procreative management, unspecified (principal) | CPT/HCPCS: 36415; 82397 ==

== ENCOUNTER 2023-07-21 11:24 | Emergency (ER) | payer OTHER, SELFPAY ==
[2023-07-21 11:35] VITALS: BP 153/91; PULSE 78; RESP 18; TEMP 36.8; O2SAT 99; BMI 33.9
--- NOTE | 2023-07-21 11:59 | ED_ITS ---
Discharge Plan Disposition Patient Disposition: Home, Self-Care Condition: Good Prescriptions Prescriptions: New permethrin 5 % cream 1 applic topical Q14D Qty: 60 0RF Rx Instructions: apply second treatment 14 days after first treatment if live lice remain hydroxyzine pamoate [Vistaril] 25 mg capsule 25 mg PO Q6H PRN (Reason: itching) Qty: 30 0RF prednisone 10 mg tablet 10 mg PO DIRECTED 9 Days Qty: 21 0RF Rx Instructions: Take 4 tablets daily for 3 days, then take 2 tablets daily for 3 days, then take 1 tablet daily for 3 days, then stop. No Action phentermine [Adipex-P] 37.5 mg tablet 37.5 mg PO DAILY Rx Instructions: must administer 30 minutes before or 1-2 hours after breakfast meloxicam 7.5 mg tablet 7.5 mg PO DAILY Qty: 30 2RF urea 20 % cream 1 applic topical BID 30 Days Qty: 85 3RF phentermine 37.5 mg tablet 37.5 mg PO DAILY Patient Comments: TAKE ONE TABLET BY MOUTH EVERY DAY ondansetron 4 MG tablet,disintegrating 4 mg PO Q8HP PRN (Reason: Nausea) Qty: 20 2RF triamcinolone acetonide 0.1 % cream 1 applic topical BID PRN (Reason: itching) Qty: 30 0RF mupirocin 2 % ointment 1 applic topical TID 7 Days Qty: 15 0RF methylprednisolone 4 mg Tablets,Dose Pack 4 mg PO DIRECTED 6 Days Qty: 21 0RF Rx Instructions: Take 1 pack as directed for 6 days spironolactone 25 mg tablet See Rx Instructions .ROUTE .COMPLEX Rx Instructions: TAKE ONE TABLET BY MOUTH EVERY DAY metformin 500 mg tablet extended release 24 hr 500 mg PO DAILY dicyclomine 10 MG capsule 10 mg PO TIDP PRN (Reason: IBS) Eucrisa 2 % ointment 1 applic TOPICAL BID clindamycin HCl 300 mg capsule 300 mg PO Q8H Qty: 30 0RF levofloxacin 500 mg tablet 500 mg PO DAILY Qty: 7 0RF Referrals Follow up/Referrals: Chapin Baker APRN [Primary Care Provider] - See instructions Activity Restrictions/Add. Instructions Additional Instructions/Restrictions: Try to identify and avoid contact with the offending substance'\ Don't start the oral steroids until tomorrow. The vistaril will make you drowsy, so don't drive or operate heavy machinery after taking it. Follow up with your regular doctor. GO TO THE ER FOR ANY WORSENING SYMPTOMS OR CONCERNS Clinical Impressions Clinical Impression: Chigger bites Instructions Patient Instructions: Hydroxyzine, Dexamethasone Injection Discharge ED Provider: Gamaliel Quinonez [facility] [place] HPI General Stated complaint: rash Mode of Arrival: Ambulatory Source of Information: Patient Limitations: No Limitations Time Seen by Provider: 07/21/23 11:59 Description of Symptoms (Recalled from Triage Doc. by RN): Pt has rash on arms. HEENT Symptoms (Recalled from RN notes): Yes Resp Symptoms (Recalled from RN notes): No Skin Symptoms (Recalled from RN notes): No MS Symptoms (Recalled from RN notes): No Functional Status (Recalled from RN notes): n/a History of Present Illness Provider Complaint: She has been having an itchy rash on both her forearms and hands for the past 1 week. Related Data Home Medications Medication Instructions Recorded Confirmed crisaborole 2 % topical ointment 1 applic topical BID ECZEMA 03/22/22 06/11/23 (Eucrisa) dicyclomine 10 mg capsule 10 mg PO TIDP PRN IBS 03/22/22 06/11/23 metformin 500 mg tablet,extended 500 mg PO DAILY PCOS 03/22/22 06/11/23 release 24 hr spironolactone 25 mg tablet See Rx Instructions .Route 03/22/22 06/11/23 .COMPLEX PCOS phentermine 37.5 mg tablet 37.5 mg PO DAILY 06/11/23 06/11/23 phentermine 37.5 mg tablet 37.5 mg PO DAILY 07/20/23 07/20/23 (Adipex-P) Previous Rx's Medication Instructions Recorded ondansetron 4 mg disintegrating 4 mg PO Q8HP PRN Nausea #20 tabs 10/11/20 tablet meloxicam 7.5 mg tablet 7.5 mg PO DAILY #30 tabs 05/04/23 urea 20 % topical cream 1 applic topical BID 30 days #85 05/04/23 grams clindamycin HCl 300 mg capsule 300 mg PO Q8H #30 caps 06/27/23 levofloxacin 500 mg tablet 500 mg PO DAILY #7 tabs 06/27/23 methylprednisolone 4 mg tablets in 4 mg PO DIRECTED 6 days #21 tabs 07/16/23 a dose pack mupirocin 2 % topical ointment 1 applic topical TID 7 days #15 07/16/23 grams triamcinolone acetonide 0.1 % 1 applic topical BID PRN itching 07/16/23 topical cream #30 grams hydroxyzine pamoate 25 mg capsule 25 mg PO Q6H PRN itching #30 caps 07/21/23 (Vistaril) permethrin 5 % topical cream 1 applic topical Q14D 2 doses #60 07/21/23 grams prednisone 10 mg tablet 10 mg PO DIRECTED 9 days #21 07/21/23 tabs Allergies Allergy/AdvReac Type Severity Reaction Status Date / Time No Known Allergies Allergy Verified 07/21/23 11:43 Worker's Comp Is this a Worker's Comp case?: No [facility] Disclaimer: The information contained in this section may have been updated after the patient was seen, as this information can be updated by other users. Medical History Patient desires IBS (irritable bowel syndrome) Type 2 diabetes mellitus PCOS (polycystic ovarian syndrome) Surgical History [place] teeth extracted History of cholecystectomy Family History Grandmother Cancer Maternal-Breast Social History Smoking Status: Never smoker alcohol intake: never substance use type: denies use current occupational status: employed Travel in the last 8 weeks: None ROS Obtained: Yes All systems reviewed & no additional complaints except as documented Constitutional Constitutional: Denies chills and Denies fever(s) Eyes Eyes: Denies eye discharge ENT Ears, Nose, Mouth, and Throat: Denies dizziness, Denies otalgia and Denies sore throat Cardiovascular Cardiovascular: Denies chest pain Respiratory Respiratory: Denies shortness of breath, Denies chest congestion, Denies cough, Denies stridor and Denies wheezing Gastrointestinal Gastrointestingal: Denies nausea or vomiting Musculoskeletal Musculoskeletal: Reports system reviewed and no additional complaints, except as documented and Denies arthralgias Integumentary/Breasts Skin/Breast: Reports as per HPI and Denies rash Neurologic Neurologic: Denies dizziness and Denies paresthesias Allergic/Immunologic Allergic/Immunologic: Denies wheezing Physical Exam General General appearance: alert and in no apparent distress Head Head exam: atraumatic, normocephalic and normal inspection Eye Eye exam: Present normal appearance, PERRL and EOMI ENT ENT exam: Present normal exam, normal oropharynx, mucous membranes moist, TM's normal bilaterally and normal external ear exam Neck Neck exam: Present normal inspection, full ROM and trachea midline; Absent meningismus or lymphadenopathy Chest Chest inspection: Present normal inspection and symmetric chest wall rise; Absent tenderness Respiratory Respiratory exam: Present normal lung sounds bilaterally; Absent respiratory distress Cardiovascular Cardiovascular exam: Present regular rate and normal rhythm; Absent JVD Abdominal Exam Abdominal exam: Present soft and normal bowel sounds; Absent distention, tenderness or guarding Extremities Exam Extremities exam: Present normal inspection, full ROM and normal capillary refill; Absent calf tenderness Back Exam Back exam: Present normal inspection; Absent tenderness Neurological Exam Neurological exam: Present alert and oriented X3 Psychiatric Psychiatric exam: Present normal affect and normal mood Skin Skin exam: Present rash Lymphatic Lymphatic Findings: no adenopathy Medical Decision Making Medical Records Medical records reviewed: No I reviewed the patient's medical records. Jewel Inquiry Pt receiving controlled substance: No Vital Signs: 07/21/23 11:35 Temperature 98.2 F Temperature Source Oral Pulse Rate [Right Radial] 78 Respiratory Rate 18 Blood Pressure [Right Arm] 153/91 H Blood Pressure Mean [Right Arm] 111 Blood Pressure Source [Right Arm] Automatic Cuff Blood Pressure Position [Right Arm] Sitting 02 Sat by Pulse Oximetry 99 Oxygen Delivery Method Room Air
[2023-07-21] MEDS: DEXAMETHASONE 4MG/ML 1ML VIAL 8 MG IM (12:24)
[2023-07-21 12:49] VITALS: BP 138/94; PULSE 78; RESP 18; TEMP 37.1; O2SAT 97
== END 2023-07-21 12:49 | disposition home or self-care (01) ==
PROVIDERS: Emergency Provider Nurse Practitioner Family; PCP Nurse Practitioner Family
DX: B88.0 Other acariasis (principal); R21 Rash and other nonspecific skin eruption
CPT/HCPCS: 96372; 99204; 99212; G0463; J1100

== ENCOUNTER 2023-08-04 10:00 | Outpatient (RCR) | payer OTHER, SELFPAY ==
--- NOTE | 2023-07-07 13:48 | HMH.PTOPEV ---
PT Outpatient Evaluation Rehab PT Outpatient Evaluation Start: 07/07/23 11:03 Freq: Status: Active Protocol: Document 07/07/23 11:03 DANETTE (Rec: 07/07/23 12:03 DANETTE [id number]) E-signed By Radha Garcia, PT Outpatient Therapy Subjective History Subjective History This is an initial evaluation for 42 y/o Salima Alarcon who presents with referral for PT d/t partial tear in achilles tendon, sprain of calcaneofibular ligament, and achilles tendinitis. Pt reports she injured her ankle in Jan. The pain was insidious and was found to be a bone spur/Lucinda's deformity at the time. Pt had an MRI on 05/14/23 which showed partial tear of the Achilles tendon and calcaneofibular ligament sprain. Pt was given a walking boot with instructions to use as needed/ when walking a lot. Pt uses heel lifts in her tennis shoes when not using boot. Pt reports she takes meloxicam. 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 New diagnosis of cancer in past 12 No months? Chief Complaint Pain Symptom Type Ache,Dull,Stabbing Symptoms Relieved By Rest/Positioning,Elevation Prior Functional Limitations None Current Functional Limitations Housework,Desk Work/Reading, Sleeping,Standing,Sitting, Recreation Activity,Walking Symptom Description Constant but Variable Level of pain today (0-10) 3 Pain scale - at its best (0-10) 2 Pain scale - at its worst (0-10) 8 Ankle/Foot Eval Gait Observation General Gait Pattern Observation Antalgic Gait Assistive Device Ambulation Assistive Device None Palpation Tenderness left Ankle/Foot Palpation Findings Tenderness Ankle/Foot Palpation Overall Comment 2/4 TTP calcaneus CF TTP positive ROM Ankle/Foot Dorsiflexion w/Knee Flexed 5 Active Range of Motion (degrees) Ankle/Foot Plantar Flexion Active Range WNL, 45 of Motion (degrees) Ankle/Foot Eversion Passive Range of 25 Motion (degrees) Ankle/Foot Inversion Active Range of 20, painful Motion (degrees) Ankle/Foot ROM Limitations Soft Tissue Tightness,Pain MMT Ankle Dorsiflexion Strength Grade 4- Good- Ankle Plantarflexion Strength Grade 4 Good Foot Eversion Strength Grade 4- Good- Foot Inversion Strength Grade 3 Fair Special Tests Talar Tilt Test Positive Left Ankle Inversion (supination) Test Positive Left Lower Extremity Functional Index Activities Today, do you or would you have any difficulty at all with: a.Any of your usual work, housework or A little bit of difficulty school activities b. Your usual hobbies, recreational or Moderate difficulty sporting activities c. Getting into or out of the bath A little bit of difficulty d. Walking between rooms A little bit of difficulty e. Putting on your shoes or socks No difficulty f. Squatting Moderate difficulty g. Lifting an object, like a bag of No difficulty groceries from the floor h. Performing light activities around No difficulty your home i. Performing heavy activities around Moderate difficulty your home j. Getting into or out of a car A little bit of difficulty k. Walking 2 blocks A little bit of difficulty l. Walking a mile A little bit of difficulty m. Going up or down 10 stairs (about 1 Moderate difficulty flight of stairs) n. Standing for 1 hour Moderate difficulty o. Sitting for 1 hour No difficulty p. Running on even ground A little bit of difficulty q. Running on uneven ground A little bit of difficulty r. Making sharp turns while running fast Moderate difficulty s. Hopping Moderate difficulty t. Rolling over in bed A little bit of difficulty LEFI Score Lower Extremity Functional Index Score 57 Miscellaneous Dx PT Eval Objective Objective L ankle figure 8: 48 CM Swelling noted posteriorly at Lucinda's deformity. Outpatient Therapy Assessment Impairments Problems/Impairmments Impaired Range of Motion, Impaired Strength,Impaired Gait Pattern,Impaired Walking, Impaired Standing,Impaired Recreational Activities, Impaired Running,Impaired Jumping,Impaired Work Activities,Increased Edema, Subjective C/O Pain Prognosis Rehab Potential Good Clinical Impression Consistent with Diagnosis Yes Short Term Goals Number of Weeks 3 Decreased Palpation Tenderness Yes: 1/4 TTP posterior calcaneous Increase Strength Yes: Increase ankle strength to 4/[address] directions Decrease Subjective C/O Pain Yes: 24 hour pain of 6/10 or less Cpa Tax Goals Number of Weeks 6 Increase Range of Motion Yes: Ankle AROM WNL to restore functional ROM Increase Strength Yes: Ankle MMT 5/5 to improve functional strength Improve LEFI Score Yes: Improve to 65/80 to improve QOL. Decrease Subjective C/O Pain Yes: At worst 4/10 Patient to be Ind w/ Advanced HEP Yes Outpatient Therapy Plan of Care Treatment Plan May Include Therapeutic Exercise Including Home Yes Exercise Program Manual Therapy Techniques Yes Neuromuscular Re-education Yes Therapeutic Activities to Return to Yes Previous Functional/Work Level Gait Training Yes ADL/Self Care Education Yes Dry Needling Yes Thermal Modalities Yes Electrical Stimulation Yes Ultrasound/Phonophoresis Yes Iontophoresis Yes Orthotics/Bracing/Splinting Yes Vasopneumatic Compression Pump Yes Massage Yes Eval/Re-Eval Yes Frequency Times per week 2x Duration Number of Weeks 5-6 weeks Addendums This patient is a candidate for social No or vocational rehab? Patient/Guardian verbally acknowledges Yes understanding of treatment program and consents to further treatment? Patient/Guardian verbally acknowledges Yes understanding of diagnosis, prognosis and goals for treatment? Eval Complexity PT Charges 88188 - Low Complexity Shoulder/Elbow Eval Shoulder Objective Measurements Elbow Objective Measurements PHYSICIAN CERTIFICATION: I certify the specified therapy services for Salima Alarcon are required, authorized, and reviewed every 30 days.
== END 2023-08-04 11:00 | disposition home or self-care (01) ==
LOC: PT 10:00
PROVIDERS: Visit Provider Podiatrist
DX: M76.62 Achilles tendinitis, left leg (principal); S86.012S Strain of left Achilles tendon, sequela; S93.412S Sprain of calcaneofibular ligament of left ankle, sequela
CPT/HCPCS: 97010; 97016; 97110; 97163

== ENCOUNTER 2024-01-15 11:02 | Outpatient (CLI) | payer OTHER, SELFPAY ==
--- NOTE | 2024-01-15 11:03 | MM_ITS ---
PROCEDURE INFORMATION: Exam: MG Bilateral Screening 3D Mammography Exam date and time: 01/15/2024 10:59 AM Age: 43 years old Clinical indication: Screening examination. TECHNIQUE: Imaging protocol: Bilateral Screening tomosynthesis and 2D mammography including computer-aided detection (CAD) when performed. COMPARISON: No relevant prior studies available. FINDINGS: MAMMOGRAPHY: Breast composition: There are scattered areas of fibroglandular density. Mass: None. Architectural distortion: None. Calcifications: No suspicious calcifications. Asymmetric density: None. Skin thickening: None. Axillary adenopathy: None. IMPRESSION: No mammographic evidence of malignancy. Annual screening is recommended unless otherwise clinically indicated. ASSESSMENT: BI-RADS Category 1: Negative.
== END 2024-01-15 23:59 | disposition home or self-care (01) ==
LOC: RAD 11:03
PROVIDERS: PCP Nurse Practitioner Family; Visit Provider Obstetrics & Gynecology
DX: Z12.31 Encounter for screening mammogram for malignant neoplasm of breast (principal)
CPT/HCPCS: 77063; 77067

== ENCOUNTER 2024-12-05 09:55 | Outpatient (CLI) | payer OTHER, SELFPAY ==
--- NOTE | 2024-12-05 10:00 | MM_ITS ---
PROCEDURE INFORMATION: Exam: MG Bilateral Screening 3D Mammography Exam date and time: 12/05/2024 10:03 AM Age: 43 years old Clinical indication: Screening. Her maternal grandmother had breast cancer. TECHNIQUE: Imaging protocol: Bilateral Screening tomosynthesis and 2D mammography including computer-aided detection (CAD) when performed. COMPARISON: MG MM DIG SCREENING MAMM BI W/CAD 01/15/2024 10:59 AM FINDINGS: MAMMOGRAPHY: Breast composition: There are scattered areas of fibroglandular density. Mass: No suspicious mass. Architectural distortion: None. Calcifications: No suspicious calcifications. Asymmetric density: None. Skin thickening: None. Axillary adenopathy: None. IMPRESSION: No mammographic evidence of malignancy. Annual screening is recommended unless otherwise clinically indicated. ASSESSMENT: BI-RADS Category 1: Negative.
--- OUTSIDE RECORDS SUMMARY | 2024-12-05 10:02 | XMS_ITS | Encounter Summary ---
Author Organization Healthcare Address [address] [id number] Care Team Providers Care Financial Assistance Specialist Name Role Phone Chapin Baker APRN Primary Care Provider [phone]- [phone] Encounter Details Date Type Department Care Team (Late st Contact Info) Description 10/05/2024 Results Follow-Up Obstetrics & Gynecology [address] [place] [address] Alexey Lozano MD [address] [place] [address] Social History Tobacco Use Types Packs/Day Years Used Date Smoking Tobacco: Never Smokeless Tobacco: Never Alcohol Use Standard Drinks/Week Comments Never 0 (1 standard drink = 0.6 oz pur e alcohol) PHQ-2 Answer Date Recorded Patient Health Questionnaire-2 Score 0 09/26/2024 PHQ-9 Answer Date Recorded Patient Health Questionnaire-9 Score 0 09/22/2024 Comments No Sex and Gender Information Value Date Recorded Sex Assigned at Not on file Legal Sex Female 6:43 PM EDT Gender Identity Not on file Sexual Orientation Not on file documented as of this encounter Plan of Treatment Not on file documented as of this encounter Visit Diagnoses Not on filedocumented in this encounter Additional Health Concerns Assessment Noted Time PHQ-9 Depression Total Score: 0 09/23/19 25 2:50 PM EDT A fall risk assessment has been complete d for the patient 08/25/2024 4:06 PM EDT A Body Mass Index follow-up plan has been documented for the patient 10/04/2024 3:41 PM EDT documented as of this encounter Care Teams Financial Assistance Specialist Relationship Specialty Start Date End Date Chapin Baker APRN [address] [place] [address] PCP - General 04/15/24 documented as of this encounter
--- OUTSIDE RECORDS SUMMARY | 2024-12-05 10:02 | XMS_ITS | Clinical Summary ---
Author Organization Healthcare Address [address] [place] [address] Care Team Providers Care Bleach Liquor Maker Name Role Phone Chapin Baker APRN Primary Care Provider [phone]- [phone] Allergies No known active allergies Medications metFORMIN XR (Glucophage-XR) 500 MG 24 hr tablet Take 1 tablet (500 mg) by mouth daily. 02/06/2024 Active spironolactone (Aldactone) 25 MG tablet Take 1 tablet (25 mg) by mouth daily. 02/06/2024 Active MV-Min-Fe Fum-FA-DHA ( 1 PO) Take by mouth. Active omega-3 (Fish Oil) 1000 MG capsule Take 1 capsule by mouth in the morning and 1 capsule in the evening. Take with meals. Active co-enzyme Q-10 30 MG capsule Take 1 capsule by mouth daily. Active Encounters Date Type Department Care Team Description 10/05/2024 Results Follow-Up Obstetrics & Gynecology [address] [place] [address] Alexey Lozano MD 10/04/2024 3:30 PM EDT Clinical Support Obstetrics & Gynecology [address] [place] [address] Irregular menstruation, unspecified (Primary Dx) 10/04/2024 Travel 09/26/2024 2:30 PM EDT Office Visit Obstetrics & Gynecology [address] [place] [address] Alexey Lozano MD Infertility, anovulation (Primary Dx) 09/26/2024 Travel 09/22/2024 3:30 PM EDT Evaluation [facility] [address] [place] [address] Bessy Reina, PharmD 09/22/2024 2:55 PM EDT Ancillary Procedure Obstetrics & Gynecology [address] [place] [address] Irregular menstruation, unspecified 09/22/2024 2:30 PM EDT Office Visit Obstetrics & Gynecology [address] [place] [address] Alexey Lozano MD Irregular menstruation, unspecified (Primary Dx); PCOS (polycystic ovarian syndrome); Encounter for preconception consultation; Infertility, anovulation 09/22/2024 Telephone [facility] [address] [place] [address] Bessy Reina, PharmD 09/22/2024 Travel 09/12/2024 Orders Only Obstetrics & Gynecology [address] [place] [address] Alexey Lozano MD from Last 3 Months Immunizations Immunization Administration Dates Next Due Hep B, adult 11/24/2013 Influenza, Unspecified 11/20/2015,11/10/2014, PPD Skin Test (TB Skin Test) 12/26/2013,01/11/20 13,04/14/2012 Tdap 02/05/2011 Family History Medical History Relation Name Comments Breast cancer Maternal Grandmother Cancer Maternal Grandmother Relation Name Status Comments Maternal Grandmother Social History Tobacco Use Types Packs/Day Years Used Date Smoking Tobacco: Never Smokeless Tobacco: Never Tobacco Cessation:Counseling Given: Not Answered Alcohol Use Standard Drinks/Week Comments Never 0 [...] on file Sexual Orientation Not on file Last Filed Vital Signs Vital Sign Reading Time Taken Comments Blood Pressure 127/86 09/26/2024 4:17 PM EDT Pulse 76 09/26/2024 4:17 PM EDT Temperature 36.9 C (98.4 F) 09/22/2024 2:45 PM EDT Respiratory Rate 20 09/26/2024 4:17 PM EDT Oxygen Saturation 100% 09/26/2024 4:17 PM EDT Inhaled Oxygen Concentration - - Weight 102 kg (224 lb 13.9 oz) 09/26/2024 4:17 P M EDT Height 165.1 cm (5' 5 ) 09/26/2024 4:17 PM EDT Body Mass Index 37.42 09/26/2024 4:17 PM EDT Plan of Treatment Health Maintenance Due Date Last Done Comments [facility]-HIV Screening 1982 [facility]-Hepatitis C Screening 1982 [facility]-Infant/Child/Adol SDOH Screenings 1982 Diabetes: Dental Exam 1992 [facility]-Varicella Vaccines (1 of 2 - 13+ 2-dose series) 12/17/1995 [facility]- SDOH Screenings 2000 [facility]-Adult SDOH Screenings 2000 [facility]-Pneumococcal Vaccine: Pediatrics (0 to 5 Years) and At-Risk Patients (6 to 49 Years) (1 of 2 - PCV) 2001 [facility]-Pap Smear 12/17/2003 HPV Vaccines (1 - 3-dose SCDM series) 2009 [facility]-Cervical Cancer Screening 2012 [facility]-HPV/Cotest 2012 [facility]-Hepatitis B Vaccines (2 of 3 - 19+ 3-dose series) 12/22/2013 11/24/2013 NDA-DANNO-66 Vaccine (3 - season) 2024 02/11/2021, 01/11/2021 [facility]-Influenza Vaccine (#1) 10/10/202411/22, 11/20/2015, 11/10/2014, Additional history exists [facility]-Diabetes: Hemoglobin A1C 10/31/2024 05/03/2024 [facility]-Depression Screening 09/26/2025 09/26/2024, 09/09 [facility]-DTaP,Tdap,and Td Vaccines (3 - Td or Tdap) 05/06/2028 05/06/2018, 02/05/2011 [facility]-Zoster Vaccines (1 of 2) 2032 [facility]-Obesity Intervention Completed 025, 09/26/2024, 09/22/2024, Additional history exists [facility]-HIB Vaccines Aged Out No longer e ligible based on patient's age to complete this topic [facility]-Hepatitis A Vaccines Aged Out No longer eligible based on patient's age to complete this topic [facility]-IPV Vaccines Aged Out No longer e ligible based on patient's age to complete this topic [facility]-Rotavirus Vaccines Aged Out No lo nger eligible based on patient's age to complete this topic Procedures Procedure Name Priority Date/Time Associated Diagnosis Comments PROGESTERONE III Routine 10/04/2024 3:37 PM EDT Irregular menstruation, unspecified US PELVIS TRANSVAGINAL Routine 09/22/2024 2:51 PM EDT Irregular menstruation, unspecified HEMOGLOBIN A1C Routine 05/03/2024 12:02 PM EDT Irregular menstruation, unspecified PCOS (polycystic ovarian syndrome) from Last 3 Months or Most Recently Relevant to Health Maintenance Results * Progesterone (10/04/2024 3:37 PM EDT) Progesterone III 14.2 Reference Range not established ng/mL 10/05/2024 1:01 AM EDT [facility] Blood Venous blood specimen / Unknown Venipuncture / Unknown 10/04/2024 3:37 PM EDT 10/04/2024 6:46 PM EDT Narrative [facility] - 10/05/2024 1:01 AM EDT Menstrual Cycle Phase Reference Intervals: Females, 18 Y and up (ng/mL) Follicular <= 0.33 Ovulation <= 2.35 Luteal 0.5-21 Post-Menopausal <0.2 reference Intervals (ng/mL): 1st Trimester 11 - 45 2nd Trimester 25 - 84 3rd Trimester 58 - 214 us Alexey Lozano MD LAB BLOOD ORDERABLES Final Resu lt [facility] [address] [place] [address] * US Pelvis Transvaginal (09/22/2024 2:51 PM EDT) Anatomical Region Laterality Modality Pelvis Ultrasound 09/22/2024 3:00 PM EDT Impressions 09/22/2024 3:40 PM EDT The OB Ultrasound you requested has been resulted. Please navigate to the Imaging tab in [employer] for review. This message has been generated by the interface. Narrative Procedure Note Alexey oLzano MD - 09/22/2024 IMPRESSION: The OB Ultrasound you requested has been resulted. Please navigate to theImaging tab in [employer] for review. This message has been generated by theinterface. us Alexey Lozano MD IMG US PROCEDURES Final Result * (ABNORMAL) Hemoglobin A1c (05/03/2024 12:02 PM EDT) Hemoglobin A1c 6.0(H) <5.7 % 05/03/2024 6:47 PM EDT [facility] Blood Venous blood specimen / Unknown Venipuncture / Unknown 05/03/2024 12:02 PM EDT 05/03/2024 6:07 PM EDT Narrative [facility] - 05/03/2024 6:47 PM EDT HA1C Interpretive Data: Diagnosis of Diabetes: Diabetic > or = 6.5% Pre-diabetic 5.7 to 6.4% Non-diabetic < or = 5.6% Glycemic Targets for Type I and Type II Diabetics: Non- Adults <7.0% Adults <6.0% Children and Adolescents <7.5% Source: [place] [employer]. Standards of medical care in diabetes,2017. Diabetes Care.2017:40 (suppl 1):S1-S135. HbA1c assay performed by an ion-exchange chromatography method that is certified traceable to the DCCT. Alexey Lozano MD LAB BLOOD ORDERABLES Final Resu lt [facility] [address] [place] [address] from Last 3 Months or Most Recently Relevant to Health Maintenance Insurance Care Teams Bleach Liquor Maker Relationship Specialty Start Date End Date Chapin Baker APRN [address] [place] [address] PCP - General 04/15/24
--- OUTSIDE RECORDS SUMMARY | 2024-12-05 10:02 | XMS_ITS | Encounter Summary ---
Author Organization Healthcare Address [address] [id number] Care Team Providers Care Shell Assembler Name Role Phone Chapin Baker APRN Primary Care Provider +1- [phone] Encounter Details Date Type Department Care Team (Late st Contact Info) Description 09/02/2024 Results Follow-Up Obstetrics & Gynecology [address] [place] [address] Alexey Lozano MD [address] [place] [address] Social History Tobacco Use Types [...] on file documented as of this encounter Functional Status * Over the past 2 weeks, how often have you been bothered by any of the following problems? Question Answer Date of Assessment Author Little interest or pleasure in doing things Not at all 09/26/2024 4:18 PM EDT Cathy Mccauley Feeling down, depressed, or hopeless Not at all 09/26/2024 4:18 PM EDT Cathy Mccauley Patient Health Questionnaire -2 Score 0 09/26/2024 4:18 PM EDT Cathy Mccauley * Question Answer Date of Assessment Author Trouble falling or staying a sleep, or sleeping too much Not at all 09/22/2024 2:50 PM Aashish Mann Feeling tired or having chichi le energy Not at all 09/22/2024 2:50 PM EDAashish Hernandez Poor appetite or overeating Not at all 09/22/2024 2: 50 PM Aashish Mann Feeling bad about yourself - or that you are a failure or have let yourself or your family down Not at all 09/22/2024 2:50 PM EDLandry Hernandez Trouble concentrating on thi ngs, such as reading the newspaper or watching television Not at all 09/22/2024 2:50 PM Aashish Mann Moving or speaking so slowly that other people could have noticed? Or the opposite - being so fidgety or restless that you have been moving around a lot more than usual. Not at all 09/22/2024 2:50 PM Layla Mann Thoughts that you would be b cullen off or hurting yourself in some way Not at all 09/22/2024 2:50 PM Aashish Mann Patient Health Questionnaire -9 Score 0 09/22/2024 2:50 PM Aashish Mann * Calculated C-SSRS Risk Score (Lifetime/Recent) Answer Date of Assessment Author No Risk Indicated 09/22/2024 2:50 PM Layla Mann * How difficult have these problems made it for you to do your work, take care of things at home, or get along with other people? Answer Date of Assessment Author Not difficult at all 09/22/2024 2:50 PM Aashish Mann * Question Answer Date of Assessment Author 1. Wish to be (Past 1 Month) No 025 2:50 PM Aashish Mann 2. Non-Specific Active Suici chhaya Thoughts (Past 1 Month) No 09/22/2024 2:50 PM EDT Aashish Montague 6. Suicidal Behavior (Lifetime) No 2:50 PM EDT Asahish Montague documented as of this encounter Plan of Treatment Not on file documented as of this encounter Visit Diagnoses Not on filedocumented in this encounter Additional Health Concerns Assessment Noted Time PHQ-9 Depression Total Score: 0 08/24/19 2:58 PM EDT A fall risk assessment has been complete d for the patient 08/25/2024 4:06 PM EDT A Body Mass Index follow-up plan has been documented for the patient 09/02/2024 10:33 AM EDT documented as of this encounter Care Teams Shell Assembler Relationship Specialty Start Date End Date Chapin Baker APRN [address] [place] [id number] PCP - General 04/15/24 documented as of this encounter
== END 2024-12-05 23:59 | disposition home or self-care (01) ==
LOC: RAD 09:56
PROVIDERS: PCP Nurse Practitioner Family; Visit Provider Obstetrics & Gynecology
DX: Z12.31 Encounter for screening mammogram for malignant neoplasm of breast (principal); R92.323 Mammographic fibroglandular density, bilateral breasts; Z80.3 Family history of malignant neoplasm of breast
CPT/HCPCS: 77063; 77067